=== PATIENT | male | born 1950 | race Caucasian/White ===

== ENCOUNTER → 2017-08-26 | Outpatient (CLI) | payer MEDICARE, BC ==
--- NOTE | 2017-08-26 15:12 | RADIOLOGY REPORT (SQ) ---
EXAM DESCRIPTION: CT ABD/PELVIS WITH IV ORAL COMPLETED DATE/TIME: 08/26/2017 2:55 pm REASON FOR STUDY: R10.9 UNSPECIFIED ABDOMINAL PAIN R10.9 UNSPECIFIED ABDOMINAL PAIN COMPARISON: 2008. TECHNIQUE: CT scan of the abdomen and pelvis performed with intravenous and oral contrast using karen yumiko scanning technique with dynamic intravenous contrast injection. Images reviewed with lung, soft t issue, and bone windows. Reconstructed coronal and sagittal MPR images reviewed. Delayed images for e valuation of the urinary system also acquired. All images stored on PACS. All CT scanners at this facility use dose modulation, iterative reconstruction, and/or weight based d osing when appropriate to reduce radiation dose to as low as reasonably achievable (ALARA). [facility]: Dose Right [facility]: CareDose [facility]: Dose Right [facility]: Teradose 4D [facility]: [employer] CONTRAST TYPE AND DOSE: contrast/concentration: Isovue 370.00 mg/ml; Total Contrast Delivered: 99.0 ml; Total Saline Delivered: 72.0 ml RENAL FUNCTION: Creatinine 0.9 RADIATION DOSE: CT Rad equipment meets quality standard of care and radiation dose reduction techniq ues were employed. CTDIvol: 9.4 - 11.2 mGy. DLP: 1098 mGy-cm.. LIMITATIONS: None. FINDINGS: LOWER CHEST: Predominantly calcified nodules consistent with previous granulomatous diseas e. Stable appearance. No worrisome findings. LIVER: Numerous circumscribed grossly nonenhancing cysts measure less than 2 cm. Chronic but probabl y slowly progressive over time. SPLEEN: Normal size. No focal lesions. PANCREAS: No masses. No significant calcifications. No adjacent inflammation or peripancreatic fluid collections. Pancreatic duct not dilated. GALLBLADDER: Cholelithiasis. No wall thickening or duct dilatation. ADRENAL GLANDS: No significant masses or asymmetry. RIGHT KIDNEY AND URETER: At least 1 cyst but no solid mass, stones or obstruction. LEFT KIDNEY AND URETER: No solid masses. No significant calcification. No hydronephrosis or hydrouret er. AORTA AND VESSELS: No aortic aneurysm or dissection. Atherosclerotic plaque. Major arterial structu res are patent. No venous clot. RETROPERITONEUM: No retroperitoneal adenopathy, hemorrhage or masses. BOWEL AND PERITONEAL CAVITY: No wall thickening or mass evident. Anastomosis point in the rectum wit h slight focal distension. No ascites or abnormal gas or evidence of adenopathy. APPENDIX: Normal. PELVIS: No significant masses. Normal bladder. No free fluid. ABDOMINAL WALL: No masses. No hernias. BONES: No significant or acute findings. OTHER: No other significant finding. IMPRESSION: 1. No acute or suspicious abdominopelvic abnormality. Findings include slightly progres sing liver cysts, cholelithiasis and previous granulomatous disease with stable pulmonary nodules. TECHNICAL DOCUMENTATION: JOB ID: [id number] Quality ID # [id number]: Final reports with documentation of one or more dose reduction techniques (e.g., Au tomated exposure control, adjustment of the mA and/or kV according to patient size, use of iterative reconstruction technique) 2010 [employer]- All Rights Reserved
== END ==
LOC: RAD 14:13
PROVIDERS: ATTEND Surgery
DX: R10.9 Unspecified abdominal pain (principal); K76.89 Other specified diseases of liver; K80.20 Calculus of gallbladder without cholecystitis without obstruction
CPT/HCPCS: 74177; 82565

== ENCOUNTER → 2018-07-16 | Outpatient (CLI) | payer MEDICARE, BC ==
--- NOTE | 2018-07-16 15:27 | RADIOLOGY REPORT (SQ) ---
EXAM DESCRIPTION: CT SINUSES FOR ENT COMPLETED DATE/TIME: 07/16/2018 3:14 pm REASON FOR STUDY: ACUTE RECURRENT SINUSITIS UNSPECIFIED LOCATION J01.91 ACUTE RECURRENT SINUSITIS, UNSPECIFIED COMPARISON: None. TECHNIQUE: Noncontrast scanning through the paranasal sinuses using bone algorithm. Reconstructed MPR images reviewed. All images stored on PACS. Images acquired for image guided surgery. All CT scanners at this facility use dose modulation, iterative reconstruction, and/or weight based d osing when appropriate to reduce radiation dose to as low as reasonably achievable (ALARA). [facility]: Dose Right [facility]: CareDose [facility]: Dose Right [facility]: Teradose 4D [facility]: [employer] RADIATION DOSE: mGy. FINDINGS: NASAL PASSAGES: Clear. No polyps or masses. OSTEOMEATAL UNITS AND NASOFRONTAL DUCTS: Patent. MAXILLARY SINUSES: Mild mucosal thickening. No fluid levels. Maxillary sinus outlets are patent. ETHMOID SINUSES: Mild mucosal thickening. No fluid. SPHENOID SINUSES: Minimal mucosal thickening. No fluid. FRONTAL SINUSES: Minimal mucosal thickening. No fluid. MASTOID AIR CELLS: Clear. ORBITS: Normal and symmetrical. NASAL SEPTUM: Midline. No nasal septal spurs. TEMPOROMANDIBULAR JOINTS: Normal. TURBINATES: No pneumatized turbinates. OTHER: No other significant findings. IMPRESSION: Chronic appearing mild sinus changes. No acute sinusitis. TECHNICAL DOCUMENTATION: JOB ID: [id number] Quality ID # [id number]: Final reports with documentation of one or more dose reduction techniques (e.g., Au tomated exposure control, adjustment of the mA and/or kV according to patient size, use of iterative reconstruction technique) 2010 [employer]- All Rights Reserved Reading location - IP/workstation name: [email or web address]
== END ==
LOC: RAD 14:30
PROVIDERS: ATTEND Otolaryngology
DX: J01.91 Acute recurrent sinusitis, unspecified (principal)
CPT/HCPCS: 70486

== ENCOUNTER → 2018-07-16 | Outpatient (CLI) | payer MEDICARE, BC | LOC: LAB 10:51 | PROVIDERS: ATTEND Otolaryngology | DX: J30.9 Allergic rhinitis, unspecified (principal) | CPT/HCPCS: 36415; 82785; 86003 ==

== ENCOUNTER → 2018-09-14 | Outpatient (CLI) | payer MEDICARE, BC | LOC: OD 15:22 | PROVIDERS: ATTEND Anesthesiology | DX: Z01.810 Encounter for preprocedural cardiovascular examination (principal); Z53.8 Procedure and treatment not carried out for other reasons ==

== ENCOUNTER 2018-09-21 06:49 | Day surgery (SDC) | payer MEDICARE, BC ==
--- NOTE | 2018-09-16 09:34 | EKG REPORT ---
SEVERITY:- ABNORMAL ECG - SINUS RHYTHM LEFT BUNDLE BRANCH BLOCK : Confirmed by: Ngoc Sesay 16-Sep-2018 09:34:12
[~2018-09-21 06:49] MED LIST: ACETAMINOPHEN 1,000 MG/100 ML RTUPB IV ONE; CEFAZOLIN 2 GM/D5W RTU 2 GM/50 ML RTUPB IV PRN; DEXAMETHASONE SOD PHOSPHATE INJ 4 MG/1 ML VIAL ONE; FENTANYL CITRATE INJ/PF 250 MCG/5 ML AMPULE ONE; MIDAZOLAM 2 MG/2 ML INJ ONE; ONDANSETRON HCL INJ/PF 4 MG/2 ML SDV ONE; PROPOFOL INJ 200 MG/20 ML VIAL IV ONE
[2018-09-21] MEDS ORDERED: MINERAL OIL (STERILE) 10 ML VIAL ONE (07:12)
[2018-09-21] MEDS ORDERED: BUPIVACAINE HCL 0.5%/EPI 1:200000 INJ 1.8 ML CARTRIDGE ONE (07:13)
[2018-09-21] MEDS ORDERED: OXYMETAZOLINE HCL 0.05% NASAL SPRAY 15 ML BOTTLE ONE (07:13)
[2018-09-21] MEDS ORDERED: BUPIVACAINE HCL 0.5%-EPI 1:200000 INJ/PF 30 ML VIAL ONE (07:13)
[2018-09-21] MEDS ORDERED: TOBRAMYCIN SULFATE/DEXAMETH OPH OINTMENT 3.5 GM ONE (07:13)
[2018-09-21] MEDS ORDERED: CEFAZOLIN 2 GM/D5W RTU 2 GM/50 ML RTUPB IV ONE (07:40)
[2018-09-21] MEDS ORDERED: PHENYLEPHRINE HCL INJ/PF 10 MG/1 ML SDV ONE (10:36)
[2018-09-21] MEDS ORDERED: SUCCINYLCHOLINE CHLORIDE INJ 200 MG/10 ML VIAL ONE (10:36)
[2018-09-21] MEDS ORDERED: GLYCOPYRROLATE 1 MG/5 ML SYRINGE ONE (10:36)
[2018-09-21] MEDS ORDERED: LIDOCAINE 2% INJ-PF (20 MG/ML) 2 ML AMPUL ONE (10:36)
[2018-09-21] MEDS ORDERED: PROMETHAZINE HCL INJ 25 MG/1 ML VIAL IV PRN ×3 (14:04→15:39)
[2018-09-21] MEDS ORDERED: BACITRACIN ZINC OINTMENT 15 GM ONE (14:04)
[2018-09-21] MEDS ORDERED: MEPERIDINE HCL/PF INJ 25 MG/1 ML DISP.SYRIN IV PRN (14:04)
[2018-09-21] MEDS ORDERED: FENTANYL CITRATE INJ/PF 100 MCG/2 ML AMPUL IV PRN ×3 (14:04)
[2018-09-21] MEDS ORDERED: ONDANSETRON HCL INJ/PF 4 MG/2 ML SDV IV PRN ×3 (14:04→15:52)
[2018-09-21] MEDS ORDERED: DIPHENHYDRAMINE HCL 50 MG/ML VIAL IV PRN (14:04)
[2018-09-21] MEDS ORDERED: MORPHINE SULFATE 10 MG/ML INJ IV PRN ×2 (14:04→15:39)
[2018-09-21] MEDS ORDERED: BALANCED SALT IRRIG SOLN COMB2 15 ML BOTTLE ONE (14:30)
[2018-09-21] MEDS ORDERED: HYDROCODONE/ACETAMINOPHEN 5-325 MG TABLET PO PRN (15:39)
[2018-09-21] MEDS ORDERED: RINGERS SOLUTION,LACTATED 1,000 ML IV PRN (15:39)
[2018-09-21 17:26] VITALS: BP 118/63
--- NOTE | 2018-09-24 23:13 | OPERATIVE REPORT E ---
Operative Report NAME: KAYLAN MENDOZA : 1950 AGE: 68Y DATE OF SURGERY: 09/21/2018 ROOM: PREOPERATIVE DIAGNOSES: 1. ACUTE RECURRENT SINUSITIS. 2. CHRONIC RHINOSINUSITIS. 3. NASAL SEPTAL DEVIATION ACQUIRED. 4. BILATERAL PATRICIO BULLOSA. 5. CHRONIC NASAL DYSPNEA. 6. BILATERAL INFERIOR TURBINATE HYPERTROPHY. 7. NASAL DEFORMITIES ACQUIRED. 8. BILATERAL NASAL VALVE COLLAPSE. POSTOPERATIVE DIAGNOSES: 1. ACUTE RECURRENT SINUSITIS. 2. CHRONIC RHINOSINUSITIS. 3. NASAL SEPTAL DEVIATION ACQUIRED. 4. BILATERAL PATRICIO BULLOSA. 5. CHRONIC NASAL DYSPNEA. 6. BILATERAL INFERIOR TURBINATE HYPERTROPHY. 7. NASAL DEFORMITIES ACQUIRED. 8. BILATERAL NASAL VALVE COLLAPSE. OPERATION PERFORMED: 1. Bilateral image guidance functional endoscopic sinus surgery as follows: 2. Bilateral maxillary antrostomies via bilateral transnasal rigid surgical endoscopy. 3. Bilateral anterior ethmoidectomies via bilateral transnasal rigid surgical endoscopy. 4. Bilateral frontal sinus balloon sinuplasty via bilateral rigid transnasal surgical endoscopy. 5. Bilateral patricio bullosa reductions via bilateral transnasal rigid surgical endoscopy. 6. Endonasal/closed septorhinoplasty with lower cartilage grafting and nasal tip complex elevation/stabilization. 7. Bilateral inferior turbinate reduction using a submucous resection technique. SURGEON: ERNA PAUL D.O. ANESTHESIA: General endotracheal tube. ANESTHESIA STAFF: "Tika Salas Jr., CRNA ESTIMATED BLOOD LOSS: 150 mL. FLUIDS: 2900 mL. URINE OUTPUT: 675 mL. COMPLICATIONS: None. DRAINS: None. SPONGE COUNT: Verified. NEEDLE COUNT: Verified. MATERIALS FORWARDED SPECIMEN: None. FINDINGS: 1. Left nasal septal deviation involving bone and cartilage and there was a small left maxillary crest spur. 2. There were no sinonasal polyps or discharge noted. 3. There was bilateral nasal deformities with nasal valve collapse. 4. Bilateral inferior turbinate hypertrophy and bilateral patricio bullosa. INDICATIONS: This is a 70-year-old white male who was seen and evaluated in the [facility] office. The patient had been referred for, and he complained of, a longstanding history of sinus disease, sinusitis, worsening nasal dyspnea, and a desire to undergo nasal and sinus surgery over the years. The patient underwent clinic flexible endoscopy and CT sinus imaging. There was an extensive discussion held with the patient with recommendation and plan for image guidance, functional endoscopic sinus surgery with bilateral maxillary antrostomies, bilateral anterior ethmoidectomies, bilateral balloon frontal sinuplasty, endonasal/closed septorhinoplasty with correction of the nasal valve deficiencies with cartilage grafting and nasal tip support/stabilization, bilateral patricio bullosa reduction and bilateral inferior turbinate reduction. The procedures and all of their risks and complications were all discussed in detail with the patient. He voiced an understanding of the described surgical plan, agreed to proceed and consent was obtained. DETAILS OF PROCEDURE: The patient was taken to the main operating room and was placed on the operating room table in the supine position. Appropriate monitors were placed. Using mask and IV access general anesthesia was induced. The patient was then transorally intubated without difficulty. The table was positioned for nasal and sinus surgery. He underwent a nasal examination with injection of local anesthetic with epinephrine and 2 Afrin-soaked neuro patties per nasal passage. The patient was then prepped and draped in a sterile fashion for sinus and nasal surgery. The system set up at least prior to beginning the case. The Afrin-soaked neuro patties were next removed and the patient underwent a hemitransfixion incision with elevation of the mucoperichondrial and mucoperiosteal flaps without difficulty. At this point the bony cartilaginous junction was identified and divided and the most deviated portion of the septal cartilage and bone were removed. There was cartilage removed that was utilized later in the case for cartilage grafts. The maxillary crest spur was removed with a V-chisel without difficulty. There was a greater than 1.5 x 1.5 cm cartilaginous L-strut preserved. The turbinate bipolar wand was used to make 2 passes in each inferior turbinate followed by use of the stair elevator to out fracture each inferior turbinate. The anterior aspect of each inferior turbinate was opened and a [place] elevator was used to perform submucosal dissection followed by use of the turbinate microdebrider system at a setting of 1500 rpm to perform submucous resection on each side. The excess/ redundant mucosa was trimmed and the margins were reapproximated with Chromic suture. At this point the image guidance functional endoscopic sinus surgery was performed in the following fashion with bilateral transnasal rigid surgical endoscopy used throughout the case. There was also use of multiple sinus surgical instruments and the microdebrider system at a setting of 3000 rpm. There has been local anesthetic with epinephrine injected around the root of the middle turbinate on each side. The lateral aspect of the patricio bullosa were resected on each side without difficulty. The medial aspect of the middle turbinate was preserved on each side as was the mid and posterior aspect. The maxillary antrostomies were performed without difficulty as were the anterior ethmoidectomies. Findings are as noted above. The frontal sinus image guidance balloon system was utilized and the balloon was inflated at multiple positions on each side. Once complete the system was withdrawn from the nose. At this point the rhinoplasty portion of the case was addressed in the following manner. There were modified marginal/rim incisions performed. There were hybrid grafts created of the septal cartilage that had been harvested. These hybrid/rim alar emil grafts were inserted into precise pockets that had been created. One graft was placed per side. Once complete the nose was thoroughly irrigated and suctioned and there was reasonable hemostasis noted. At this point all incision sites were reapproximated with Chromic suture. The patient had one modified Merocel pack placed per side along with a portion of modified Nasopore, which was placed in the area of the frontal sinus recess on each side. The Merocel packs were secured in place at the caudal aspect with 4-0 Prolene suture. At this point the patient's nose was cleaned and dried and he was returned to the anesthesia staff and allowed to emerge from general anesthesia. The patient was extubated in the main operating room and was then transported to the postanesthesia recovery unit in stable condition. There were no complications. DICTATING PHYSICIAN: ERNA PAUL D.O. [id number] PHY#: [id number] 2010 ID: [id number] JOB#: [id number] ACCT: [id number] cc:ERNA PAUL D.O. >
== END 2018-09-21 17:29 | disposition home or self-care (01) ==
LOC: OROUT 06:49
PROVIDERS: ATTEND Otolaryngology
DX: J32.9 Chronic sinusitis, unspecified (principal); J01.91 Acute recurrent sinusitis, unspecified; J34.89 Other specified disorders of nose and nasal sinuses; J34.2 Deviated nasal septum; J34.3 Hypertrophy of nasal turbinates; J30.9 Allergic rhinitis, unspecified; I10 Essential (primary) hypertension; K21.9 Gastro-esophageal reflux disease without esophagitis; Z79.899 Other long term (current) drug therapy
CPT/HCPCS: 93005; 93010; 31256; 30140; 30420; 31296; 31254; 31240; J2250; J3490 ×8; J1100; J3010; J2370; J0330; J2405; J2704; J0690; J0131

== ENCOUNTER → 2019-09-07 | Outpatient (CLI) | payer MEDICARE, BC ==
[2019-09-07 12:55] LABS: MEAN CORPUSCULAR HEMOGLOBIN 30.5 pg (27.0-33.4); MEAN CORPUSCULAR HGB CONC 34.7 g/dL (32.0-36.0); MEAN CORPUSCULAR VOLUME 88 fl (80-97); PLATELET COUNT 246 10^3/uL (150-450); RED BLOOD COUNT 5.24 10^6/uL (4.35-5.55); RED CELL DISTRIBUTION WIDTH 14.1 % (11.5-14.0); WHITE BLOOD COUNT 4.2 10^3/uL (4.0-10.5)
[2019-09-07 13:17] LABS: ALBUMIN 4.4 g/dL (3.5-5.0); ALKALINE PHOSPHATASE 72 U/L (38-126); ANION GAP 9 (5-19); ASPARTATE AMINO TRANSFERASE 54 U/L (17-59); BILIRUBIN,DIRECT 0.2 mg/dL (0.0-0.4); BILIRUBIN,TOTAL 0.6 mg/dL (0.2-1.3); CARBON DIOXIDE 29 mmol/L (22-30); CHLORIDE 102 mmol/L (98-107); GLUCOSE 101 mg/dL (75-110); POTASSIUM 4.6 mmol/L (3.6-5.0); TOTAL PROTEIN 7.3 g/dL (6.3-8.2)
[2019-09-07 13:21] LABS: BLOOD UREA NITROGEN 16 mg/dL (7-20)
--- NOTE | 2019-09-07 13:26 | RADIOLOGY REPORT (SQ) ---
EXAM DESCRIPTION: CHEST PA/LATERAL COMPLETED DATE/TIME: 09/07/2019 12:22 pm REASON FOR STUDY: PRE-OP COMPARISON: None. EXAM PARAMETERS: NUMBER OF VIEWS: two views TECHNIQUE: Digital Frontal and Lateral radiographic views of the chest acquired. RADIATION DOSE: NA LIMITATIONS: none FINDINGS: LUNGS AND PLEURA: No opacities, masses or pneumothorax. No pleural effusion. MEDIASTINUM AND HILAR STRUCTURES: No masses or contour abnormalities. HEART AND VASCULAR STRUCTURES: Heart normal size. No evidence for failure. BONES: No acute findings. HARDWARE: None in the chest. OTHER: No other significant finding. IMPRESSION: NO SIGNIFICANT RADIOGRAPHIC FINDING IN THE CHEST. TECHNICAL DOCUMENTATION: JOB ID: [id number] 2010 [employer]- All Rights Reserved Reading location - IP/workstation name: [email or web address]
--- NOTE | 2019-09-07 18:47 | EKG REPORT ---
SEVERITY:- ABNORMAL ECG - SINUS RHYTHM LEFT BUNDLE BRANCH BLOCK : Confirmed by: Ngoc Sesay 07-Sep-2019 18:46:45
== END ==
LOC: OD 11:19
PROVIDERS: ATTEND Surgery
DX: Z01.818 Encounter for other preprocedural examination (principal); K80.20 Calculus of gallbladder without cholecystitis without obstruction; F32.9 Major depressive disorder, single episode, unspecified; E78.00 Pure hypercholesterolemia, unspecified; R68.82 Decreased libido; I10 Essential (primary) hypertension; K21.9 Gastro-esophageal reflux disease without esophagitis; F41.9 Anxiety disorder, unspecified; Z87.19 Personal history of other diseases of the digestive system; Z86.010 Personal history of colon polyps
CPT/HCPCS: 36415; 71046; 80053; 85027; 93005; 93010

== ENCOUNTER 2019-09-24 10:07 | Day surgery (SDC) | payer MEDICARE, BC ==
[~2019-09-24 10:07] MED LIST changes: -ACETAMINOPHEN 1,000 MG/100 ML RTUPB IV ONE; +ACETAMINOPHEN 325 MG TABLET PO PRN; -CEFAZOLIN 2 GM/D5W RTU 2 GM/50 ML RTUPB IV PRN; -DEXAMETHASONE SOD PHOSPHATE INJ 4 MG/1 ML VIAL ONE; -FENTANYL CITRATE INJ/PF 250 MCG/5 ML AMPULE ONE; +IBUPROFEN 800 MG in NORMAL SALINE 250 ML IV PRN; +LACTATED RINGERS 1000 ML IV PRN; +LIDOCAINE 0.5% INJ-PF (5 MG/ML) 50 ML SDV SUBCUT PRN; -MIDAZOLAM 2 MG/2 ML INJ ONE; -ONDANSETRON HCL INJ/PF 4 MG/2 ML SDV ONE; -PROPOFOL INJ 200 MG/20 ML VIAL IV ONE; +VANCOMYCIN HCL 1,000 MG in DEXTROSE 5%-WATER 250 ML IV PRN
[2019-09-24] MEDS ORDERED: FENTANYL CITRATE INJ/PF 100 MCG/2 ML AMPUL ONE (10:44)
[2019-09-24] MEDS ORDERED: PROPOFOL INJ 200 MG/20 ML VIAL IV ONE (10:44)
[2019-09-24] MEDS ORDERED: MIDAZOLAM 2 MG/2 ML INJ ONE (10:44)
[2019-09-24] MEDS ORDERED: ACETAMINOPHEN 325 MG TABLET ONE (10:53)
[2019-09-24] MEDS ORDERED: FENTANYL CITRATE INJ/PF 100 MCG/2 ML AMPUL IV PRN ×3 (12:34)
[2019-09-24] MEDS ORDERED: MEPERIDINE HCL/PF INJ 25 MG/1 ML DISP.SYRIN IV PRN (12:34)
[2019-09-24] MEDS ORDERED: DIPHENHYDRAMINE HCL 50 MG/ML VIAL IV PRN (12:34)
[2019-09-24] MEDS ORDERED: MORPHINE SULFATE 10 MG/ML INJ IV PRN (12:34)
[2019-09-24] MEDS ORDERED: PROMETHAZINE HCL INJ 25 MG/1 ML VIAL IV PRN (12:34)
[2019-09-24] MEDS: BUPIVACAINE HCL 0.25 % INJ/PF (2.5 MG/1 ML) 30 ML VIAL ONE ×2 (12:37→12:40)
--- NOTE | 2019-09-24 14:03 | Discharge Summary ---
Discharge Summary (SDC) - Discharge Final Diagnosis: symptomatic cholelithiasis Date of Surgery: 09/24/19 Discharge Date: 09/24/19 Condition: Stable Treatment or Instructions: Discharge home. Diet as tolerated. Activity: No lifting greater than 10 pounds x 2 weeks. Follow-up with me in 7 to 10 days. Ultram 50 mg p.o. every 6 hours as needed for pain. Ibuprofen 800 mg p.o. 3 times daily with meals. Okay to shower on Friday. No swimming pools, tub baths, or hot tubs x2 weeks. Prescriptions: Ibuprofen [Motrin 800 mg Tablet] 800 mg PO MEALS #90 tablet Tramadol HCl [Ultram] 50 mg PO Q6HP PRN #15 tablet PRN Reason: For Pain Referrals: SASCHA HAIDER MD [Primary Care Provider] - Discharge Diet: As Tolerated Respiratory Treatments at Home: Deep Breathing/Coughing, Incentive Spirometer Discharge Activity: No Lifting Over 10 Pounds, No Lifting/Push/Pulling Home Care Assistance: None Needed Report the Following to Your Physician Immediately: Shortness of Breath, Nausea, Vomiting, Increase in Pain, Yellow Skin, Fever over 101 Degrees, Unusual Bleeding, Redness
[2019-09-24] MEDS ORDERED: TRAMADOL HCL 50 MG TABLET PO PRN (14:24)
[2019-09-24] MEDS ORDERED: ONDANSETRON HCL INJ/PF 4 MG/2 ML SDV ONE (14:26)
[2019-09-24] MEDS ORDERED: DEXAMETHASONE SOD PHOSPHATE INJ 4 MG/1 ML VIAL ONE (14:26)
[2019-09-24] MEDS ORDERED: SUCCINYLCHOLINE CHLORIDE INJ 200 MG/10 ML VIAL ONE (14:26)
[2019-09-24 16:23] VITALS: BP 119/87
--- NOTE | 2019-09-28 12:18 | Operative Report ---
Nonrecallable Operative Report DATE OF SURGERY: 09/28/19 PREOPERATIVE DIAGNOSIS: Symptomatic gallstones POSTOPERATIVE DIAGNOSIS: Symptomatic gallstones OPERATION: Laparoscopic cholecystectomy SURGEON: PRIYANKA MCKEON ANESTHESIA: GA TISSUE REMOVED OR ALTERED: Gallbladder COMPLICATIONS: None apparent ESTIMATED BLOOD LOSS: Minimal PROCEDURE: Drains/implants: None. Procedure in detail: After informed consent was obtained, the patient was brought to the operating room and laid in the supine position. The area of the abdomen was prepped and draped in a normal sterile fashion. A periumbilical incision was created with a 15 blade scalpel. Dissection was carried through the subcutaneous tissues using sharp and blunt dissection. The cicatrix was identified with a Ye clamp, and retracted upwards. The linea alba fascia was incised sharply, the abdomen was entered sharply. The balloon trocar was inserted, and pneumoperitoneum was achieved. A subxiphoid 5 mm port was then placed under direct laparoscopic visualization. 2 more 5 mm ports were placed in the right upper quadrant in similar fashion. Atraumatic graspers were placed through the 5 mm ports. The gallbladder was retracted cephalad and laterally. Dissection was begun in the triangle of [place]. The cystic duct and cystic artery were fully visualized and skeletonized, seeing the liver through the triangle. Once the critical view of safety was obtained, the cystic duct and cystic artery were clipped and cut with laparoscopic instruments. The gallbladder was then removed from the liver using electrocautery. The gallbladder was then removed through the periumbilical incision. The camera was reinserted. The hilum was inspected. It was found to be free of any leakage of blood or bile. Once this was confirmed, the 5 mm trochars were removed under direct laparoscopic visualization. The periumbilical trocar was removed, and pneumoperitoneum was relieved. The linea alba fascia was then reapproximated using 0 Vicryl suture in [id number] fashion. The overlying skin was closed using 4-0 Vicryl Rapide suture in subcuticular fashion. Dressings were placed, and the procedure was concluded. All sponge, instrument, and needle counts were correct x2. Condition: Stable.
== END 2019-09-24 16:05 | disposition home or self-care (01) ==
LOC: OROUT 10:07
PROVIDERS: ATTEND Surgery
DX: K80.10 Calculus of gallbladder with chronic cholecystitis without obstruction (principal); Z88.0 Allergy status to penicillin; E78.00 Pure hypercholesterolemia, unspecified; I10 Essential (primary) hypertension; Z79.899 Other long term (current) drug therapy
CPT/HCPCS: 88304 ×2; 47562; A9270; J2250; J1100; J3010; J0330; J2405; J7060; J7050; J2704; J3370; J1741; 790